=== PATIENT | female | born 1945 | race Caucasian/White ===

== ENCOUNTER 2019-07-25 15:20 | Emergency (ER) | payer MEDICARE ==
[~2019-07-25] VITALS: Ht 160 cm; Wt 55.3 kg
[2019-07-25] MEDS ORDERED: IV NORMAL SALINE 1000 ML BAG IV ONE (16:00)
[2019-07-25] MEDS ORDERED: MORPHINE SULFATE 2 MG/1 ML DISP.SYRIN IV ONE (16:00)
[2019-07-25] MEDS ORDERED: ASPIRIN 81 MG TAB.CHEW PO ONE (16:00)
[2019-07-25] MEDS ORDERED: ONDANSETRON 4 MG/2 ML VIAL IV ONE (16:00)
--- NOTE | 2019-07-25 16:00 | NUR ---
Patient has an Inferior STEMI and needs to be transported for higher level of care.
[2019-07-25] MEDS ORDERED: ONDANSETRON 4 MG/2 ML VIAL ONE (16:11)
[2019-07-25] MEDS ORDERED: ASPIRIN 81 MG TAB.CHEW ONE (16:11)
[2019-07-25] MEDS ORDERED: MORPHINE SULFATE 2 MG/1 ML DISP.SYRIN ONE (16:12)
[2019-07-25 16:13] LABS: BASOPHILS % (AUTO) 0.4 % (0.0-2.0); EOSINOPHILS % (AUTO) 0.1 % (0.0-7.0); HEMATOCRIT 40.9 % (31.2-41.9); HEMOGLOBIN 13.9 g/dL (10.9-14.3); LYMPHOCYTES # (AUTO) 1.3 K/uL (20.0-40.0); LYMPHOCYTES % (AUTO) 11.5 % (20.5-51.5); MEAN CORPUSCULAR HEMOGLOBIN 30.6 uug (24.7-32.8); MEAN CORPUSCULAR HGB CONC 34 g/dL (32.3-35.6); MEAN CORPUSCULAR VOLUME 90.3 fL (75.5-95.3); MONOCYTES # (AUTO) 0.4 K/uL (2.0-10.0); MONOCYTES % (AUTO) 3.2 % (0.0-11.0); NEUTROPHILS # (AUTO) 9.5 K/uL (1.8-8.9); NEUTROPHILS % (AUTO) 84.8 % (38.5-71.5); PLATELET COUNT (AUTO) 290 K/uL (179-408); RED BLOOD CELL COUNT(AUTO) 4.53 MIL/uL (3.63-4.92); WHITE BLOOD COUNT (AUTO) 11.2 K/uL (3.8-11.8)
[2019-07-25] MEDS ORDERED: HEPARIN SODIUM,PORCINE/PF 50 UNIT/5 ML SYR IV STA (16:20)
--- NOTE | 2019-07-25 16:20 | NUR ---
Ranjeet Devine RN endorsed report to ROSSY Campoverde at [facility]
--- NOTE | 2019-07-25 16:20 | NUR ---
Frannie from [facility] returned call and accepts the patient. Call placed to [phone] to transfer to [facility].
[2019-07-25] MEDS ORDERED: HEPARIN SODIUM,PORCINE 5,000 UNITS/ML VIAL ONE (16:21)
[2019-07-25 16:25] LABS: BILIRUBIN,DIRECT 0.1 mg/dL (0.0-0.2); BILIRUBIN,TOTAL 0.4 mg/dL (0.2-1.0); CREATININE 0.9 mg/dL (0.6-1.3); POTASSIUM 3.4 mmol/L (3.5-5.1)
--- NOTE | 2019-07-25 16:31 | NUR ---
Patient transported to [place] for [employer]. [id number] transported patient.
== END 2019-07-25 16:31 | disposition short-term general hospital (02) ==
LOC: ER 15:24
DX: I21.19 ST elevation (STEMI) myocardial infarction involving other coronary artery of inferior wall (principal)
CPT/HCPCS: 36415; 71045; 80048; 80076; 84484; 85025; 85730; 93005; 96374; 96375; 99285; J1642; J1644; J2270; J2405; 70030-TC; A4663; J7030